=== PATIENT | male | born 1950 | race Caucasian/White ===

== ENCOUNTER 2017-01-20 15:02 | Inpatient (IN) | payer OTHER ==
[~2017-01-20] VITALS: Ht 172.7 cm; Wt 60.1 kg
[2017-01-20 15:54] LABS: HEMATOCRIT 45.4 % (38.0-50.0); MCH 30.5 PG (29.0-34.0); MCHC 32.4 G/DL (30.0-36.0); MCV 94.2 FL (86-99); RBC DIS.WIDTH-CV 13.1 % (11.8-14.6); RBC DIS.WIDTH-SD 45.5 % (39-53); RED BLOOD COUNT 4.82 M/uL (4.00-5.50); WHITE BLOOD COUNT 9.7 K/uL (4.1-10.2)
[2017-01-20 15:56] LABS: VENOUS PCO2 74 mm Hg (41-51)
[2017-01-20 16:04] LABS: CHLORIDE 95 mEq/L (99-109); POTASSIUM 3.9 mEq/L (3.7-5.4); SODIUM 137 mEq/L (136-147)
[2017-01-20 16:05] LABS: GLUCOSE 105 mg/dL (70-99)
[2017-01-20 16:07] LABS: ANION GAP 10 MEQ/L (2-14); CARBON DIOXIDE (BICARBONATE) > 40.0 MEQ/L (20-31)
[2017-01-20 16:09] LABS: GFR ESTIMATE (CALCULATED) 59 mL/min/
[2017-01-20 16:10] LABS: UREA NITROGEN (BUN) 11 mg/dL (9-23)
[2017-01-20 16:17] LABS: TROP-I INTERPRETATION NEGATIVE; TROPONIN-I < 0.01 ng/mL (0.0-0.30)
[2017-01-20 17:10] LABS: HEMATOLOGY COMMENT 1 SN; PLAT.SUFFICIENCY ADEQUATE; PLATELET COUNT UNABLE TO REPORT K/uL (156-360)
[2017-01-20 19:14] LABS: D-DIMER ELISA 1.92 mg/L FEU (< 0.57)
[2017-01-20 19:48] VITALS: BP 86/54
[2017-01-20 21:52] LABS: TROP-I INTERPRETATION NEGATIVE; TROPONIN-I 0.01 ng/mL (0.0-0.30)
[2017-01-20 22:47] VITALS: BP 104/58
[2017-01-21 00:34] VITALS: BP 95/54
[2017-01-21 04:30] VITALS: BP 97/55
[2017-01-21 06:25] LABS: HEMATOCRIT 35.4 % (38.0-50.0); MCH 30.9 PG (29.0-34.0); MCHC 32.5 G/DL (30.0-36.0); MCV 95.2 FL (86-99); MEAN PLAT.VOLUME 10.1 uM^3 (9.0-12.4); PLATELET COUNT 226 K/uL (156-360); RBC DIS.WIDTH-CV 13.2 % (11.8-14.6); RBC DIS.WIDTH-SD 46.5 % (39-53); WHITE BLOOD COUNT 4.9 K/uL (4.1-10.2)
[2017-01-21 06:28] LABS: RED BLOOD COUNT 3.72 M/uL (4.00-5.50)
[2017-01-21 06:34] LABS: ALKALINE PHOSPHATASE 70 IU/L (3-129); ANION GAP 7 MEQ/L (2-14); CHLORIDE 102 MEQ/L (99-109); GFR ESTIMATE (CALCULATED) > 59 mL/min/; GLUCOSE 156 mg/dL (70-99); POTASSIUM 4.3 MEQ/L (3.7-5.4); SAMPLE HEMOLYSIS CHECK 0; SAMPLE ICTERIC CHECK 0; SAMPLE LIPEMIA CHECK 0; SODIUM 137 MEQ/L (136-147); TOTAL BILIRUBIN 0.3 MG/DL (0.0-1.0); UREA NITROGEN (BUN) 15 mg/dL (9-23)
[2017-01-21 06:42] LABS: TROP-I INTERPRETATION NEGATIVE; TROPONIN-I < 0.01 ng/mL (0.0-0.30)
[2017-01-21 07:25] VITALS: BP 100/55
[2017-01-21 10:59] LABS: CARBON DIOXIDE (BICARBONATE) 32.1 MEQ/L (20-31)
[2017-01-21 11:15] VITALS: BP 101/55
[2017-01-21 15:12] VITALS: BP 105/56
[2017-01-21 20:00] VITALS: BP 92/51
[2017-01-22] VITALS: BP 113/54
[2017-01-22 04:42] VITALS: BP 120/76
[2017-01-22 06:17] LABS: HEMATOCRIT 35.7 % (38.0-50.0); MCH 30.8 PG (29.0-34.0); MCHC 32.2 G/DL (30.0-36.0); MCV 95.7 FL (86-99); MEAN PLAT.VOLUME 10.2 uM^3 (9.0-12.4); PLATELET COUNT 250 K/uL (156-360); RBC DIS.WIDTH-CV 13.9 % (11.8-14.6); RBC DIS.WIDTH-SD 49.1 % (39-53); RED BLOOD COUNT 3.73 M/uL (4.00-5.50); WHITE BLOOD COUNT 17.4 K/uL (4.1-10.2)
[2017-01-22 07:50] LABS: ANION GAP 6 MEQ/L (2-14); CHLORIDE 105 MEQ/L (99-109); FERRITIN 78 NG/ML (22-322); GFR ESTIMATE (CALCULATED) 59 mL/min/; GLUCOSE 137 mg/dL (70-99); IRON 51 MCG/DL (35-150); POTASSIUM 4.4 MEQ/L (3.7-5.4); SAMPLE HEMOLYSIS CHECK 0; SAMPLE ICTERIC CHECK 0; SAMPLE LIPEMIA CHECK 0; SODIUM 140 MEQ/L (136-147)
[2017-01-22 07:51] LABS: UREA NITROGEN (BUN) 23 mg/dL (9-23)
[2017-01-22 08:10] VITALS: BP 111/61
[2017-01-22 11:51] VITALS: BP 116/56
[2017-01-22 15:46] VITALS: BP 110/62
[2017-01-22 18:50] VITALS: BP 114/64
[2017-01-23] VITALS (7 sets, daily range): BP systolic 107–129; BP diastolic 57–77
[2017-01-23 07:11] LABS: HEMATOCRIT 37.1 % (38.0-50.0); MCHC 32.1 G/DL (30.0-36.0); MCV 96.6 FL (86-99); MEAN PLAT.VOLUME 9.9 uM^3 (9.0-12.4); PLATELET COUNT 244 K/uL (156-360); RBC DIS.WIDTH-CV 14.2 % (11.8-14.6); RBC DIS.WIDTH-SD 50.4 % (39-53); RED BLOOD COUNT 3.84 M/uL (4.00-5.50); WHITE BLOOD COUNT 18.3 K/uL (4.1-10.2)
[2017-01-24] VITALS (7 sets, daily range): BP systolic 104–121; BP diastolic 56–71
[2017-01-24 07:04] LABS: EOSINOPHIL (%) 0 % (0-5); HEMATOCRIT 37.1 % (38.0-50.0); IMMATURE GRANULOCYTE (%) 0.5 % (0.0-0.7); IMMATURE GRANULOCYTE COUNT 0.1 K/uL; INSTRUMENT ABS NEUTROPHIL CT 8.9 K/uL; MCH 30.7 PG (29.0-34.0); MCHC 31.5 G/DL (30.0-36.0); MCV 97.4 FL (86-99); MEAN PLAT.VOLUME 9.8 uM^3 (9.0-12.4); MONOCYTE (%) 7.9 % (3-12); MONOCYTE COUNT 0.9 K/uL (0-0.8); NEUTROPHIL (%) 82.5 % (45-76); NEUTROPHIL COUNT 8.9 K/uL (1.8-6.4); PLATELET COUNT 214 K/uL (156-360); RBC DIS.WIDTH-CV 14.4 % (11.8-14.6); RBC DIS.WIDTH-SD 51.6 % (39-53); RED BLOOD COUNT 3.81 M/uL (4.00-5.50); WHITE BLOOD COUNT 10.8 K/uL (4.1-10.2)
[2017-01-24 07:31] LABS: ANION GAP 3 MEQ/L (2-14); CHLORIDE 103 MEQ/L (99-109); GFR ESTIMATE (CALCULATED) > 59 mL/min/; GLUCOSE 119 mg/dL (70-99); POTASSIUM 4.3 MEQ/L (3.7-5.4); SAMPLE HEMOLYSIS CHECK 0; SAMPLE ICTERIC CHECK 0; SAMPLE LIPEMIA CHECK 0; SODIUM 141 MEQ/L (136-147); UREA NITROGEN (BUN) 24 mg/dL (9-23)
[2017-01-24] MEDS ORDERED: BENZONATATE100 MG PO (09:47)
[2017-01-24] MEDS ORDERED: NICOTINE PATCH1 EAC2 TD (09:47)
[2017-01-24] MEDS ORDERED: PREDNISONE10 MG PO (09:50)
[2017-01-24] MEDS ORDERED: CYANOCOBALAM1000 MCG PO (13:43)
[2017-01-25 04:00] VITALS: BP 113/65
[2017-01-25 07:36] VITALS: BP 115/77
[2017-01-25 09:02] LABS: HEMATOCRIT 40.1 % (38.0-50.0); MCH 30.6 PG (29.0-34.0); MCHC 31.4 G/DL (30.0-36.0); MCV 97.3 FL (86-99); MEAN PLAT.VOLUME 9.7 uM^3 (9.0-12.4); PLATELET COUNT 208 K/uL (156-360); RBC DIS.WIDTH-SD 50.6 % (39-53); RED BLOOD COUNT 4.12 M/uL (4.00-5.50); WHITE BLOOD COUNT 8.8 K/uL (4.1-10.2)
[2017-01-25 09:14] LABS: ANION GAP 4 MEQ/L (2-14); CHLORIDE 100 MEQ/L (99-109); GFR ESTIMATE (CALCULATED) > 59 mL/min/; GLUCOSE 111 mg/dL (70-99); POTASSIUM 4.4 MEQ/L (3.7-5.4); SAMPLE HEMOLYSIS CHECK 0; SAMPLE ICTERIC CHECK 0; SAMPLE LIPEMIA CHECK 0; SODIUM 141 MEQ/L (136-147); UREA NITROGEN (BUN) 22 mg/dL (9-23)
[2017-01-25 10:52] LABS: VENOUS PCO2 76 mm Hg (41-51)
[2017-01-25 10:56] LABS: CARBON DIOXIDE (BICARBONATE) > 40.0 MEQ/L (20-31)
[2017-01-25 15:37] VITALS: BP 111/62
[2017-01-25] MEDS ORDERED: DULERA 200 MCG/13 GM IH (16:45)
[2017-01-25] MEDS ORDERED: INCRUSE ELLI62.5 MCG IH (16:45)
[2017-01-25] MEDS ORDERED: VENTOLIN HFA18 GM IH (16:47)
== END 2017-01-25 18:06 | disposition home or self-care (01) | DRG 190 ==
LOC: EME 15:02 → EDOF 18:14 → 5WEST 18:14 → EDOF 18:14 → 5WEST 19:25 → 5SOUTH 01-21 10:21 → 5WEST 01-21 10:21 → 5SOUTH 01-21 10:21
PROVIDERS: Emergency Medicine; Internal Medicine; Nurse Practitioner Adult Health; Physician Assistant Medical
DX: J44.0 Chronic obstructive pulmonary disease with (acute) lower respiratory infection (principal); J96.02 Acute respiratory failure with hypercapnia; J96.01 Acute respiratory failure with hypoxia; Z68.1 Body mass index [BMI] 19.9 or less, adult; E87.2 Acidosis; D64.9 Anemia, unspecified; F17.210 Nicotine dependence, cigarettes, uncomplicated; Z59.0 Homelessness; J98.01 Acute bronchospasm; J20.9 Acute bronchitis, unspecified; J44.1 Chronic obstructive pulmonary disease with (acute) exacerbation; E53.8 Deficiency of other specified B group vitamins
CPT/HCPCS: 71010; 71020; 71275; 80048; 80053; 81003; 82607; 82728; 82746; 82803; 83540; 83605; 83880; 84466; 84484; 85025; 85027; 85379; 87040; 93005; 94640; 94640 76; 94760; 94799; 99202; 99281; 99285; G0378; J1100; J1644; J2930; J3420; J7030; J7512; J7644